=== PATIENT | female | born 1965 | race Caucasian/White ===

== ENCOUNTER → 2017-01-09 | Day surgery (SDC) | payer OTHER, MEDICARE ==
[~2017-01-09] VITALS: Ht 167.6 cm; Wt 68.0 kg
[~2017-01-09] MED LIST: FERROUS SULFAT325 M3 PO; FLOVENT DISKU100 MCG INH; PROAIR HFA8.5 GM INH; XANAX0.5 M1 PO
--- NOTE | 2017-01-13 16:57 | Operative Report ---
Operative/Inv Procedure Report Surgery Date: 01/09/17 Name of Procedure: D&C hysteroscopy Pre-Operative Diagnosis: Postmenopausal bleeding Post-Operative Diagnosis: Same Estimated Blood Loss: scant Surgeon/Chief Legal Officer: DARÍO AMOS MD Anesthesia: moderate sedation Operative/Procedure Note Note: Patient was taken to the operating room placed in dorsal supine position. After adequate anesthesia, patient was prepped and draped for surgery. Examination under anesthesia was performed. CO2 tenaculum was placed on the anterior lip of the cervix gentle downward traction was used. The cervix was dilated 29 Hegar to left insertion of the hysteroscope. Under direct visualization to hysteroscopy was performed using gas hysteroscope was removed and endocervical curettage was performed. And endometrial curettage was performed. All instruments removed from the vagina. The counts were correct the patient was awakened from anesthesia. And transported to recovery room awake and alert.
== END ==
LOC: STS 01:50
DX: N95.0 Postmenopausal bleeding (principal); E06.3 Autoimmune thyroiditis; J45.909 Unspecified asthma, uncomplicated
CPT/HCPCS: 81025; 88305; J2250